=== PATIENT | female | born 1945 | race Caucasian/White ===

== ENCOUNTER 2019-04-14 12:20 | Inpatient (IN) ==
[~2019-04-14 12:20] MED LIST: SODIUM CHLORIDE 0.9% INJ SCH; TYLENOL PO PRN; ZOFRAN IV PRN
--- NOTE | 2019-04-14 12:25 | Diag Imaging Result Doc PS360 ---
EXAM: ABDOMEN FLAT/UPRIGHT 04/14/2019 HISTORY: abd pain; sob TECHNIQUE: Flat and upright abdomen COMMENT: There is colonic gas. There is no evidence of gastric or small bowel dilatation. There are postsurgical changes in the lower lumbar spine. There is curvature of the lumbar spine with convexity to the right. There is no evidence organomegaly or mass. IMPRESSION: Nonspecific abdomen. Electronically signed by Carmelo Mendez 04/14/2019 12:22 PM
--- NOTE | 2019-04-14 12:54 | Diag Imaging Result Doc PS360 ---
CT ABDOMEN/PELVIS W/O CONTRAST - 04/14/2019 INDICATION: abd pain; gib COMPARISON: None FINDINGS: There is some scattered linear atelectasis in both lung bases. Heart size is normal with no pericardial effusion. The liver is mildly fatty. No masses. There are small bilateral nonobstructing renal stones measuring about 3 mm. No hydronephrosis or hydroureter. Uterus is absent. Urinary bladder and rectum are normal. There are apparent appendectomy changes. No bowel obstruction or inflammation. There are laminectomy and fusion changes of the lower lumbar spine. No acute bony lesion. IMPRESSION: 1. Normal exam of the gastrointestinal tract. 2. Mild fatty liver. 2. Small bilateral nonobstructing renal stones. This exam was performed using automated exposure control, adjustment of mA or kV according to patient size, and/or use of iterative reconstruction technique Electronically signed by Connor Thompson 04/14/2019 12:51 PM
[2019-04-14 14:00] LABS: BASO# 0.04 X1000 (0.0-0.2); BASO% 0.3 % (0.0-0.8); EOS# 0.02 X1000 (0.0-0.7); EOS% 0.2 % (0.0-10.0); HEMATOCRIT 46.7 % (37.0-47.0); HEMOGLOBIN 16.4 g/dL (12.0-16.0); IMM GRAN# 0.02 X1000 (0.0-0.04); IMM GRAN% 0.2 % (0.0-0.5); LYMPH# 2.28 X1000 (1.2-3.4); LYMPH% 17.2 % (20.5-51.1); MCH 31.5 PG (27-31); MCHC 35.1 g/dL (33-37); MCV 89.6 FL (81-99); MONO# 1.14 X1000 (0.11-0.59); MONO% 8.6 % (1.7-9.3); NEUT# 9.79 X1000 (1.4-6.5); NEUT% 73.5 % (42.2-75.2); PLT 309 X1000 (130-400); RBC 5.21 XMIL (4.2-5.4); RDW 12.9 % (11.5-14.5); WBC 13.29 X1000 (4.8-10.8)
[2019-04-14 14:19] LABS: INR 0.91; PROTIME 13.1 Seconds (11.0-16.0)
[2019-04-14 14:33] LABS: PTT < 20.0 Seconds (22.3-41.8)
[2019-04-14 17:58] LABS: AGAP 17; ALB/GLOB RATIO 1.3; ALBUMIN 4.4 g/dL (3.5-5.0); ALKALINE PHOSPHATASE 104 U/L (32-104); AMYLASE 46 U/L (20-200); BUN 17 mg/dL (8-22); CALCIUM 9.5 mg/dL (8.8-10.2); CHLORIDE 100 mmol/L (98-107); CK TOTAL 59 U/L (24-173); COSMO 280; CREATININE 0.8 mg/dL (0.5-0.9); ESTIMATED GFR > 60; GLUCOSE 117 mg/dL (70-104); GOT 17 U/L (10-30); GPT 12 U/L (10-36); IRON SATURATION 13 %; LIPASE 27 U/L (13-60); MAGNESIUM 2.2 mg/dL (1.5-2.7); PHOSPHORUS 2.4 mg/dL (2.7-4.5); POTASSIUM 3.4 mmol/L (3.5-5.1); SODIUM 139 mmol/L (136-145); TCO2 22 mmol/L (25-35); TIBC 326 ug/dL; TOTAL BILIRUBIN 1.79 mg/dL (0.20-1.00); TOTAL IRON 41 ug/dL (49-151); TOTAL PROTEIN 7.7 g/dL (6.3-8.3); UNBOUND IRON 285 ug/dL (112-346)
[2019-04-14] MEDS: NS 1,000 ML IV SCH ×2 (17:58→21:22)
[2019-04-14] MEDS: CARAFATE LIQUID PO SCH ×2 (17:59→21:22)
[2019-04-14] MEDS: NEXIUM IV SCH (18:16)
[2019-04-14 18:30] LABS: FREE T4 1.47 ng/dL (0.93-1.70); TSH 8.62 uIUmL (0.27-4.20)
--- NOTE | 2019-04-14 18:40 | HISTORY AND PHYSICAL ---
PRIMARY CARE PROVIDER: Elmo Nicole MD PLANT MACHINIST: Mohamud Rivera MD CHIEF COMPLAINT: Black stools, lightheadedness spells, vomiting. HISTORY OF PRESENT ILLNESS: Ms. Francoise Francisco is a 74-year-old female with a medical history of GERD, hypothyroidism, glaucoma, who apparently started having vomiting Saturday night. She was out in the heat all day long. They went out to eat and she came home and started getting sick to her stomach. She threw up over the last couple of days that she says is brown emesis, started having diarrhea 2 days ago that was black, tarry, and along with that she has been having dizzy and lightheadedness spells when getting up. She has been having abdominal pain. It is more of a burn and cramp in the bilateral lower quadrants, which eases up when she stops taking in food. On further questioning her, she explains that she has been using ibuprofen 800 mg p.o. daily for at least 3 months for arthritic pain. She does say that she takes Pepcid with it. She felt like it might would help keep her from having any stomach ulcers while taking ibuprofen. So, we will admit her. Her hemoglobin and hematocrit are stable. Her vital signs are stable. This is likely either a gastroenteritis or an acute gastritis causing a little bit of blood tinge, but we will consult Dr. Rivera, her sales recruitment specialist. She has had an EGD and a colonoscopy in 2018, and the patient says that it was normal. PAST MEDICAL HISTORY: 1. GERD. 2. Hypothyroidism. 3. Overactive bladder. 4. Glaucoma. 5. Insomnia. 6. Osteoporosis. PAST SURGICAL HISTORY: 1. Appendectomy. 2. Partial hysterectomy. 3. Right rotator cuff repair. 4. Back fusion in the lower back. 5. Colonoscopy and EGD in 2018. SOCIAL HISTORY: Denies tobacco. Says she drinks a glass of red wine about once a month, and then about once on the weekend she will have a gin and citric drink mix. Denies any illicit drug use. Lives with her . FAMILY HISTORY: Mother had diabetes. Father had blood clots in his 80s. She had an aunt that had Dennise Gehrig's disease. ALLERGIES: No known drug allergies. HOME MEDICATIONS: She has home medications that have not been verified. REVIEW OF SYSTEMS: A 14-point review of systems is complete and all are negative except for those mentioned above in the HPI. PHYSICAL EXAMINATION: VITAL SIGNS: Temperature 99.3 degrees, heart rate 70, respiratory rate 18, blood pressure 168/82, and O2 saturation 94% on room air. GENERAL: Ms. Francoise Francisco is a 74-year-old female. She is in no acute distress. She answers most questions appropriately. HEENT: Atraumatic, normocephalic. Pupils equal, round, reactive to light. Extraocular movements intact. Mucous membranes are dry. NECK: Trachea midline. CARDIOVASCULAR: S1, S2. Regular rate and rhythm. No rubs, gallops, murmurs. No lower extremity edema. There are +2 dorsalis and radial pulses. Negative JVD or carotid bruits. PULMONARY: Clear to auscultation. Bilateral breath sounds. No accessory muscle use or work of breathing noted. GASTROINTESTINAL: Soft, tender in the bilateral lower quadrants. Hyperactive bowel sounds x4. EXTREMITIES: Moves all extremities equally. Full range of motion. NEUROLOGIC: A and O x3. Follows commands. Sensory is intact. SKIN: Warm, dry, intact. LABORATORY DATA: White blood cells 13,000, hemoglobin 16, hematocrit 46, platelet count 309,000. INR 0.91, PTT is less than 20, troponin less than 0.01. Serum lactate 1.3. IMAGING STUDIES: Abdominal and pelvic CT, normal exam of the gastrointestinal tract. Mild fatty liver. Small bilateral nonobstructive renal stones. She had an abdominal x- ray, which did not show anything acute. ASSESSMENT AND PLAN: 1. Gastroenteritis versus acute gastritis and gastrointestinal bleeding is a question. She has got black tarry stools according to her, with abdominal pain, but imaging is negative. Still awaiting stool sample. She has had vomiting with this as well. She will have antiemetics. We will start her on Carafate and intravenous Nexium. She can have a clear liquid diet, and then Dr. Rivera has been consulted for any further recommendations. Hemoglobin and hematocrit are completely stable. 2. Gastroesophageal reflux disease. Continue with proton pump inhibitor. 3. Hypothyroidism. Still awaiting home medications to be verified. 4. Overactive bladder. She is on oxybutynin, but that was never started. 5. Glaucoma. 6. Insomnia. 7. Osteoporosis. 8. Deep venous thrombosis prophylaxis. Sequential compression device. Dictated by RIANNA Shepard for Elieser Tompkins MD cc: RIANNA Shepard MD I agree with most components of history, physical, assessment and plan. A separate addendum has been dictated. MTDD
--- NOTE | 2019-04-14 19:40 | HISTORY AND PHYSICAL ---
ADDENDUM: This is an addendum to the history and physical dictated by the nurse practitioner. I agree with most of the history, physical, assessment and plan. In brief, Ms. Francisco is a 74-year-old lady with past medical history of hypothyroidism who comes in as a direct admission from her primary care provider's office for suspicion of gastrointestinal bleed. Apparently the patient had been working out in the sun 4 days prior to presentation, in the yard. On the same day, at nighttime she went out to have seafood dinner with her . Shortly after coming from the dinner she started experiencing nausea, vomiting and crampy abdominal pain. The patient had multiple bouts of nausea and vomiting on that night, which continued for the following 2-3 days. Her vomiting did not have elvia blood, but did contain initially undigested food particles and later on appeared greenish. With that she had semisolid bowel movement looking black about once a day. With these complaints, she saw her primary care doctor, who suggested to come to the hospital for possible gastrointestinal bleed. The patient apparently did not have this restaurant food in the past. Her does not have any such symptoms. She admits to be taking ibuprofen multiple times a day on a regular basis for pain. PHYSICAL EXAMINATION: VITAL SIGNS: On hospital admission, temperature 99.3 degrees, pulse 70, respiratory rate 18, blood pressure 162/80, saturating 94% on room air. GENERAL: Does not appear in any acute distress. HEENT: Oral cavity is moist. She has pharyngeal congestion without any exudate. NECK: No cervical lymphadenopathy. LUNGS: Air entry bilaterally equal. No wheeze, rhonchi or crackles. HEART: S1 appears split. S2 is normal. No murmur, rub or gallop. ABDOMEN: Soft, nontender. No hepatosplenomegaly. Active bowel sounds. EXTREMITIES: No lower extremity edema. LABORATORY DATA: Labs suggestive of leukocytosis of 13,000, hemoglobin of 16.4, platelets of 309,000. Normal coagulation. Hypokalemia, which is currently being replenished, low bicarbonate. Normal kidney function. Hypophosphatemia and slightly elevated bilirubin. MICROBIOLOGY: Blood cultures are in lab. DIAGNOSTIC DATA: 1. Abdomen and pelvis CT had suggested small bilateral nonobstructing renal stones, about 3 mm. No hydronephrosis or hydroureter. No bowel obstruction or inflammation. 2. EKG is pending. ASSESSMENT: 1. Acute gastritis with suspected gastroenteritis. 2. Suspected acute upper gastrointestinal bleed with history of melena, likely due to nonsteroidal anti-inflammatory drug use versus bacterial gastroenteritis. 3. Volume depletion with hemoconcentration. 4. Hypothyroidism. 5. Chronic back pain, with regular nonsteroidal anti-inflammatory drug use. PLAN: Start the patient on intravenous fluid resuscitation. Replenish potassium. Her symptoms have been progressively improving, and her leukocytosis could be because of hemoconcentration. I will follow up stool Shiga toxin and stool culture. Plan of care discussed with the patient. All of her questions have been answered. Gastroenterology evaluation is pending. She does not have signs of overt bleeding at the moment. cc: Elieser Tompkins MD
[2019-04-14 20:21] LABS: BILIRUBIN URINE NEGATIVE (NEGATIVE); BLOOD URINE NEGATIVE (NEGATIVE); COLOR YELLOW; GLUCOSE URINE NEGATIVE (NEGATIVE); KETONE URINE 40 mg/dL (NEGATIVE); LEUKOCYTES URINE NEGATIVE (NEGATIVE); NITRITE URINE NEGATIVE (NEGATIVE); PROTEIN URINE 30 mg/dL (NEGATIVE); SP GRAVITY URINE 1.029; TURBIDITY URINE CLEAR (CLEAR); URINE SOURCE CLEAN CATCH; UROBILINOGEN URINE 6 mg/dL (NORMAL)
[2019-04-14 20:51] LABS: UR EPITHELIAL CELLS <10 /HPF (<10); URINE BACTERIA NEGATIVE /HPF; URINE RBC <10 /HPF (<10); URINE WBC <10 /HPF (<10)
[2019-04-14 21:15] LABS: URINE CASTS NONE SEEN; URINE CRYSTALS NONE SEEN; URINE YEAST NONE SEEN
[2019-04-14] MEDS: POTASSIUM CHLORIDE 20 MEQ/SWI 20 MEQ/100 ML IVPB IV SCH (21:22)
[2019-04-15] MEDS ORDERED: KLOR-CON PO ONE (00:20)
[2019-04-15] MEDS: POTASSIUM CHLORIDE 20 MEQ/SWI 20 MEQ/100 ML IVPB IV SCH (00:25)
[2019-04-15] MEDS: NS 1,000 ML IV SCH ×3 (03:28→11:38)
[2019-04-15] MEDS: CARAFATE LIQUID PO SCH ×5 (03:28→22:09)
[2019-04-15] MEDS: NEXIUM IV SCH (06:49)
--- NOTE | 2019-04-15 06:56 | EKG Report ---
Test Performed on : 04/14/2019 6:13:02 PM Test Reason : anemia Blood Pressure : / mmHG Vent. Rate : 068 BPM Atrial Rate : 068 BPM P-R Int : 156 ms QRS Dur : 084 ms QT Int : 386 ms P-R-T Axes : 056 012 -05 degrees QTc Int : 410 ms Normal sinus rhythm. T wave inversion in Inferior leads Borderline ECG When compared with ECG of 25-JUN-2013 09:49, Questionable change in QRS axis T wave inversion now evident in Inferior leads Confirmed by Leonel Doherty MD ([id number]) on 04/15/2019 5:48:36 PM
[2019-04-15 08:08] LABS: AGAP 11; BUN 15 mg/dL (8-22); CALCIUM 8.4 mg/dL (8.8-10.2); CHLORIDE 107 mmol/L (98-107); COSMO 281; CREATININE 0.7 mg/dL (0.5-0.9); ESTIMATED GFR > 60; GLUCOSE 105 mg/dL (70-104); POTASSIUM 3.5 mmol/L (3.5-5.1); SODIUM 140 mmol/L (136-145); TCO2 22 mmol/L (25-35)
[2019-04-15 10:58] LABS: BASO# 0.04 X1000 (0.0-0.2); BASO% 0.4 % (0.0-0.8); EOS# 0.17 X1000 (0.0-0.7); EOS% 1.5 % (0.0-10.0); HEMATOCRIT 42.8 % (37.0-47.0); HEMOGLOBIN 14.5 g/dL (12.0-16.0); IMM GRAN# 0.02 X1000 (0.0-0.04); IMM GRAN% 0.2 % (0.0-0.5); LYMPH# 2.73 X1000 (1.2-3.4); LYMPH% 24.4 % (20.5-51.1); MCHC 33.9 g/dL (33-37); MCV 91.5 FL (81-99); MONO# 1.07 X1000 (0.11-0.59); MONO% 9.6 % (1.7-9.3); MPV 11.2 FL (7.4-10.4); NEUT# 7.16 X1000 (1.4-6.5); NEUT% 63.9 % (42.2-75.2); PLT 314 X1000 (130-400); RBC 4.68 XMIL (4.2-5.4); WBC 11.19 X1000 (4.8-10.8)
[2019-04-15] MEDS: VANCOCIN PO SCH ×4 (11:37→22:09)
[2019-04-15] MEDS: KLOR-CON PO SCH ×2 (11:37→16:25)
[2019-04-15] MEDS ORDERED: NS 1,000 ML IV SCH (11:45)
--- NOTE | 2019-04-15 12:29 | PROGRESS NOTE ---
DATE: 04/15/2019 INTERVAL HISTORY: The patient's stool studies came back positive for Clostridium difficile antigen and toxin as well as occult blood. She denies any overnight nausea, vomiting, or abdominal pain. She has had 3 loose looking bowel movements since midnight. However, she is feeling better. She states that she did have about up to a week of antibiotic course a month ago when she had a dental procedure done. It was amoxicillin but she did not have any symptoms at that time. I discussed with her that it is possible that could have caused C. Difficile colonization which later on caused C. Diff infection. We discussed about decreasing intravenous fluids. We also discussed about starting on vancomycin. VITALS: Temperature 98.6 degrees, pulse 61, respiratory rate 16, and blood pressure 170/75. She is saturating 95% on room air. PHYSICAL EXAMINATION: General: She does not appear in any acute distress. Oral cavity is moist. Lungs: Air entry bilaterally equal. No wheeze, rhonchi, or crackles. Cardiovascular: S1, S2 normal. No murmur, rub, or gallop. Abdomen: Soft, nontender. No hepatosplenomegaly. Extremities: No lower extremity edema. Neurologic: She is alert and oriented x3. LABORATORY: Suggestive of improving leukocytosis. Normal hemoglobin. Normal platelet count. Potassium of 3.5. She did not tolerate IV potassium yesterday. Her kidney function is normal. Microbiology as I mentioned stool occult blood, C. Difficile antigen and toxins are positive. Blood cultures are pending. ASSESSMENT AND PLAN: 1. Acute Clostridium difficile colitis. Start patient on p.o. vancomycin for 14 days and probiotics. Decrease intravenous fluid rate and stop it after 1 L. Continue liquid diet and advance to GI soft tomorrow. Also, stop proton pump inhibitors which were ordered. 2. Acute gastrointestinal bleed with positive fecal occult blood test. She is hemodynamically stable with stable blood count. No need of any blood transfusion. Her C. Diff infection currently does not seem to be fulminant enough to explain positive fecal occult blood test. Her daily use of ibuprofen for chronic pain could have caused upper gastrointestinal bleed. GI team on board. Appreciate recommendation about future need for upper endoscopy. 3. Hypokalemia is currently being repleted. 4. Essential hypertension and hypothyroidism. I am awaiting medication reconciliation and accordingly start her on medications. 5. Disposition. I will advance the patient's diet tomorrow. If her diarrhea frequency and symptoms get better, my plan is to discharge her home on p.o. vancomycin if no further GI intervention is planned. Plan of care discussed with the patient and at bedside. All of their questions have been answered. cc: Elieser Tompkins MD MTDD
[2019-04-15] MEDS: CULTURELLE PO SCH ×2 (14:09→22:09)
[2019-04-15] MEDS: PEPCID PO SCH ×2 (14:09→22:09)
[2019-04-15] MEDS ORDERED: APRESOLINE IV PRN (15:46)
--- NOTE | 2019-04-15 15:56 | GASTROENTEROLOGY CONSULTATION ---
DATE: 04/15/2019 REASON FOR CONSULTATION: Diarrhea, melena, nausea, and vomiting. HISTORY OF PRESENT ILLNESS: This is a 74-year-old female who reports onset of symptoms on Saturday. She states she had been outside in the heat all day and came home and felt sick to her stomach. She had some episodes of vomiting. She then started having some diarrhea several days ago and noted black tarry stools. She had some episodes of dizziness/lightheadedness. She had also reported some abdominal pain. On questioning, the patient does report having recent antibiotic use about a month ago for a tooth infection. She took amoxicillin. Patient has also reported NSAID use of ibuprofen for arthritis pain. On evaluation in the hospital, stool studies were done that came back positive for C. difficile antigen and C. difficile toxin. She has been started on vancomycin. Records from our office show that she had an EGD and colonoscopy in 2018. Findings showed normal EGD and mild diverticulosis by colonoscopy. She was recommended to have a follow up colonoscopy in 10 years. Recommended Metamucil. Her biopsies were negative. Patient does have a history of pyloric channel ulcer diagnosed in 2012. She had an EGD in December 2012 by our records that showed ulcer in the pylorus. She was treated with medication and a repeat EGD in April of 2013 showed healing of the ulcer. H. pylori biopsy was negative. PAST MEDICAL HISTORY: Osteoporosis, glaucoma, hypothyroidism, GERD, insomnia. PAST SURGICAL HISTORY: Appendectomy, partial hysterectomy, abdominal aortic aneurysm repair, back fusion, rotator cuff repair. ALLERGIES: No known drug allergies. HOME MEDICATIONS: None listed. SOCIAL HISTORY: Denies tobacco use. Occasional alcohol use, maybe once a month. She is . REVIEW OF SYSTEMS: Per history of present illness. PHYSICAL EXAMINATION: Vital Signs: Temperature 98.5 degrees, pulse 61, respirations 16, blood pressure 145/63. General: Patient is awake, alert, no acute distress. At the time of my evaluation, she was sitting on the side of the bed eating lunch. Her was at the bedside. HEENT: Normocephalic, atraumatic. Pupils equal, round, reactive to light. Sclerae were nonicteric. Respiratory: Lung sounds essentially clear. Cardiovascular: Regular rate and rhythm. Abdomen: Soft, nontender. Positive bowel sounds. Extremities: No lower extremity edema noted. Neurologic: Cranial nerves 2-12 are grossly intact. Patient is awake, alert, oriented to person, place, and time. DIAGNOSTIC RESULTS: Laboratory: WBC 11.19 hemoglobin 14.5, hematocrit 42.8, MCV 91.5, platelets 314,000. Coagulation: ProTime 13.1, INR 0.91. Chemistry: Sodium 140, potassium 3.5, chloride 107, CO2 22, BUN 15, creatinine 0.7, glucose 105, calcium 8.4, phosphorus 2.4, magnesium 2.2. Iron 41, TIBC 326, percent saturation 13, ferritin 251. Total bilirubin 1.79, AST 17, ALT 12, alkaline phosphatase 104. IMAGING: Abdominal and pelvis CT scan showed normal exam of the gastrointestinal tract, mild fatty liver, small bilateral nonobstructive renal stone. ASSESSMENT AND PLAN: 1. Diarrhea. 2. Clostridium difficile colitis. Patient has been started on antibiotics. 3. Hemoccult-positive stool, recent melena. Will continue to follow hemoglobin and hematocrit. She has had recent EGD and colonoscopy in 2018. 4. Recent antibiotic use. This is likely the cause of C. difficile. Again, continue antibiotics and supportive care. We will continue to follow and further plans will be made according to her progress. I have discussed this case with Dr. Rivera. Dictated by RIANNA Anders for Mohamud Rivera MD cc: RIANNA Belcher MD [facility]
[2019-04-16] MEDS: VANCOCIN PO SCH ×5 (05:22→23:53)
[2019-04-16] MEDS: CARAFATE LIQUID PO SCH ×4 (05:23→22:00)
[2019-04-16] MEDS: CULTURELLE PO SCH ×2 (08:30→22:00)
[2019-04-16] MEDS: PEPCID PO SCH ×2 (08:30→22:00)
--- NOTE | 2019-04-16 11:01 | PROGRESS NOTE ---
DATE: 04/16/2019 SUBJECTIVE: This patient is lying comfortably in bed. She is still having diarrhea, so far watery with no blood. She just started tolerating p.o. We will continue with same management. OBJECTIVE: Vital Signs: Temperature 97.5 degrees, pulse 58, respiratory rate 18, blood pressure 150/71, oxygen saturation 100% on room air. HEENT: Head normocephalic, no trauma. PERRLA. Neck: Supple. No JVD. No masses. Central trachea. Chest: Clear to auscultation. No wheezing. No rales. Abdomen: Soft. Mildly distended. Positive bowel sounds. No signs of peritoneal irritation. Extremities: No edema, no clubbing, no cyanosis. Neurological examination: The patient is alert and oriented x3. No focal neurological deficits. LABORATORY: I reviewed the lab work from yesterday, which seems to be stable. I will get a new laboratory in the morning. ASSESSMENT AND PLAN: 1. Clostridium difficile colitis. This patient has been placed on vancomycin oral, which we will we will continue for 14 days. She is still having diarrhea. We just started her on a diet. Gastroenterology Department on board. We will monitor. 2. Positive occult blood in the stool. Hemoglobin and hematocrit has been stable. She did not see any blood in her stools today. She is still having diarrhea. Gastroenterology on board. I will repeat the hemoglobin and hematocrit in the morning. 3. Hypokalemia, resolved. 4. Essential hypertension, stable. 5. Hypothyroidism. Continue to monitor. 6. Disposition: This patient just started with a soft diet. She is still having diarrhea. Once the diarrhea is better and we are sure that this patient can tolerate oral, we will send this patient home if Gastroenterology Department is okay with that. cc: Artemio Jones MD
[2019-04-17] MEDS: CARAFATE LIQUID PO SCH ×2 (02:27→09:04)
[2019-04-17] MEDS: VANCOCIN PO SCH (05:40)
[2019-04-17 06:43] LABS: BASO# 0.05 X1000 (0.0-0.2); BASO% 0.5 % (0.0-0.8); EOS# 0.47 X1000 (0.0-0.7); EOS% 4.9 % (0.0-10.0); HEMATOCRIT 43.8 % (37.0-47.0); IMM GRAN# 0.02 X1000 (0.0-0.04); IMM GRAN% 0.2 % (0.0-0.5); LYMPH# 2.33 X1000 (1.2-3.4); LYMPH% 24.4 % (20.5-51.1); MCH 30.9 PG (27-31); MCHC 34.2 g/dL (33-37); MCV 90.1 FL (81-99); MONO# 0.79 X1000 (0.11-0.59); MONO% 8.3 % (1.7-9.3); MPV 10.5 FL (7.4-10.4); NEUT# 5.89 X1000 (1.4-6.5); NEUT% 61.7 % (42.2-75.2); PLT 308 X1000 (130-400); RBC 4.86 XMIL (4.2-5.4); RDW 12.9 % (11.5-14.5); WBC 9.55 X1000 (4.8-10.8)
[2019-04-17 07:07] LABS: AGAP 15; BUN 11 mg/dL (8-22); CALCIUM 8.7 mg/dL (8.8-10.2); CHLORIDE 106 mmol/L (98-107); COSMO 279; CREATININE 0.7 mg/dL (0.5-0.9); ESTIMATED GFR > 60; GLUCOSE 99 mg/dL (70-104); POTASSIUM 3.6 mmol/L (3.5-5.1); SODIUM 140 mmol/L (136-145); TCO2 19 mmol/L (25-35)
[2019-04-17] MEDS: PEPCID PO SCH (09:04)
[2019-04-17] MEDS: CULTURELLE PO SCH (09:04)
[2019-04-17 11:26] VITALS: BP 140/70
--- NOTE | 2019-04-17 13:49 | GASTROENTEROLOGY PROGRESS NOTE ---
DATE: 04/17/2019 SUBJECTIVE: Patient was sitting up in her bed in no acute distress. She states she is having less diarrhea and a little more formed. She has tolerated a diet. OBJECTIVE: Vital signs: Temperature 98.2 degrees, pulse 80, respirations 16, blood pressure 148/70. General: The patient is awake, alert, in no acute distress. DIAGNOSTIC RESULTS: Laboratory: Hematology: WBC 9.55, hemoglobin 15.0, hematocrit 43.8, MCV 90.1. Chemistry: Sodium 140, potassium 3.6, chloride 106, CO2 19, BUN 11, creatinine 0.7, glucose 99, calcium 8.7. ASSESSMENT AND PLAN: 1. Diarrhea is slowly improving. 2. Clostridium difficile colitis. Continue on antibiotics. 3. Patient has tolerated a GI soft diet. States her diarrhea is slowly improving and has had more form to it. We will continue to follow during her hospital course. Further plans will be made as needed. Recommend she follow up with us as an outpatient in 2 to 3 weeks after discharge. I have discussed this case with Dr. Rivera. Dictated by RIANNA Anders for Mohamud Rivera MD cc: RIANNA Belcher MD
--- NOTE | 2019-04-17 19:33 | DISCHARGE SUMMARY ---
ADMISSION DATE: 04/14/2019 DISCHARGE DATE: 04/17/2019 DISCHARGE DIAGNOSES: 1. Clostridium difficile colitis. 2. Positive occult blood in the stool with stable hemoglobin. 3. Hypokalemia, resolved. 4. Hypertension, stable. 5. Hypothyroidism. CONSULTS: Gastroenterology Department, Dr. Rivera. PROCEDURES PERFORMED: Abdomen x-ray, dated 04/14/2019, impression: Nonspecific abdomen. There is colonic gas. There is no evidence of gastric or small bowel dilation. There are postsurgical changes in the lower lumbar spine. No evidence of organomegaly or mass. Abdomen and pelvis CT scan, dated 04/14/2019, impression: Normal exam of the gastrointestinal tract, mild fatty liver, small bilateral nonobstructing renal stones. HOSPITAL COURSE: 74-year-old female, with a past medical history of GERD, hypothyroidism, glaucoma, admitted on 04/14/2019 due to vomiting for a few days. Apparently, she was out in a really hot day all day long, and when she went home she started getting sick of her stomach. She threw up over the past couple of days and she says that she started having some brown emesis. She started also having diarrhea 2 days prior to admission, and they were described as dark tarry, and she started having some dizziness and lightheadedness spells when getting up. She has been complaining also of abdominal pain like burn and cramp in the bilateral lower quadrants, and apparently gets better when she stops taking in any kind of food. Apparently, she has been using ibuprofen daily for the past 3 months for arthritis. She does say that she takes Pepcid with it. She felt like it might help keep her from having any stomach ulcers while taking ibuprofen. This patient has been admitted. Vital signs were stable as well as hemoglobin and hematocrit. At the beginning, we believed it was related to gastroenteritis. Gastroenterology was consulted. She had an EGD done in 2018. For her severe diarrhea, we started this patient on fluids. We asked for some blood stools and we found out that this patient has C difficile colitis. We started this patient on vancomycin p.o. and the frequency of the diarrhea decreased significantly, to the point that she states it is a little bit more formed today. She is not having any abdominal pain, no abdominal symptoms today either. Vital signs are stable as well as the laboratory. Hemoglobin is around 15 and yesterday was 14.5. I do not think she has an active bleeding, probably was related to the colitis. Gastroenterology department will continue checking this patient as an outpatient, and they will see her in 2 to 3 weeks. I will continue with the treatment with vancomycin p.o. for the C difficile colitis, and the rest of her medications, including Carafate, Culturelle, and famotidine. Again, this patient is completely asymptomatic today. She is tolerating p.o. No problem with ambulation. No abdominal pain, no nausea, no vomiting, only 1 bowel movement today, which is more formed than before, but still some liquid. She will be discharged home to complete the treatment and follow up in 2 weeks with the Gastroenterology Department. PHYSICAL EXAMINATION: Vital Signs: Temperature 98.2 degrees, pulse 80, respiratory rate 16, blood pressure 140/70, oxygen saturation 98 on room air. HEENT: Head normocephalic, no trauma. PERRLA. Neck: Supple. No JVD. No masses. Central trachea. Chest: Clear to auscultation. No wheezing. No rales. Abdomen: Soft, nontender, nondistended. No hepatosplenomegaly. Extremities: No edema, no clubbing, no cyanosis. Neurological: The patient is alert and oriented x3. No focal deficits. LABORATORY: WBC 9.5, hemoglobin 15, hematocrit 43.8, platelets 308,000. Sodium 140, potassium 3.6, chloride 106, bicarbonate 19, BUN 11, creatinine 0.7, glucose 99, calcium 8.7. DISCHARGE MEDICATIONS: 1. Famotidine 20 mg p.o. b.i.d. 2. Boniva 150 mg p.o. as directed. 3. Culturelle 1 tablet p.o. b.i.d. 4. Levothyroxine 100 mcg p.o. daily. 5. Oxybutynin 10 mg p.o. at bedtime. 6. Carafate 1 g p.o. 4 times a day. 7. Timolol 0.5% ophthalmic solution in both eyes twice a day, 1 drop. 8. Trazodone 50 mg p.o. at bedtime. 9. Vancomycin 125 mg p.o. q.6 hours to complete 10 days. TIME DISCHARGING THIS PATIENT: 35 minutes. cc: Artemio Jones MD
== END 2019-04-17 11:43 | disposition home or self-care (01) | DRG 373 ==
LOC: SUATTDRO 15:28 → DIRADM 15:28 → 4N 15:58
PROVIDERS: ATTEND Internal Medicine
CPT/HCPCS: 74019; 74020; 74176; 80048; 80053; 81001; 82150; 82270; 82550; 82607; 82728; 82746; 82948; 83540; 83550; 83605; 83690; 83735; 83880; 84100; 84439; 84443; 84484; 85025; 85610; 85730; 86850; 86900; 86901; 87040; 87045; 87046; 87177; 87324; 87427; 87449; 87798; 88313; 93005; 93010; 99285; A9270; J3480; J7030; XXXXX